=== PATIENT | female | born 1995 | race African-American/Black ===

== ENCOUNTER 2017-10-02 15:02 | Emergency (ER) | payer MEDICAID ==
[~2017-10-02] VITALS: Ht 167.6 cm; Wt 46.8 kg
[2017-10-02 15:04] VITALS: BP 115/71
== END 2017-10-02 17:12 | disposition home or self-care (01) ==
LOC: ED 17:06
DX: S92.525A Nondisplaced fracture of middle phalanx of left lesser toe(s), initial encounter for closed fracture (principal); W22.8XXA Striking against or struck by other objects, initial encounter; Y93.89 Activity, other specified; Y92.098 Other place in other non-institutional residence as the place of occurrence of the external cause; Y99.8 Other external cause status
CPT/HCPCS: 99284